=== PATIENT | female | born 1960 | race Caucasian/White ===

== ENCOUNTER 2021-03-14 09:40 | Emergency (ER) | payer MEDICAID ==
[~2021-03-14] VITALS: Ht 160 cm; Wt 88.5 kg
--- NOTE | 2021-03-14 10:05 | NUR ---
[facility] FOR DISLODGE G-J TUBE. PT C/O PAIN TO G-J SITE. PT AAOX3, PLACED ON VENT, RR EVEN & UNLABORED. ON TELE, ST. PT SEEN & EVAL'D BY DR. CARVER. WILL CONT TO MONITOR.
[2021-03-14 10:07] LABS: BASOPHILS # (AUTO) 0.1 K/uL (0.0-0.2); BASOPHILS % (AUTO) 0.5 % (0.0-2.0); EOSINOPHILS % (AUTO) 6.1 % (0.0-6.0); HEMATOCRIT 36 % (33-45); HEMOGLOBIN 11.7 g/dL (11.5-14.8); LYMPHOCYTES # (AUTO) 2.7 K/uL (0.8-4.8); MEAN CORPUSCULAR HGB CONC 33 g/dl (31.0-36.0); MEAN CORPUSCULAR VOLUME 90 fL (82-100); MONOCYTES # (AUTO) 1.1 K/uL (0.1-1.30); MONOCYTES % (AUTO) 7.1 % (2.0-12.0); NEUTROPHILS # (AUTO) 10.3 K/uL (1.8-8.9); NEUTROPHILS % (AUTO) 68.3 % (43.0-81.0); PLATELET COUNT (AUTO) 229 K/uL (150-450); RED BLOOD CELL COUNT(AUTO) 3.99 MIL/uL (4.0-5.2); WHITE BLOOD COUNT (AUTO) 15.1 K/uL (4.3-11.0)
--- NOTE | 2021-03-14 10:08 | NUR ---
GUEVARA CALLED SHAPING MACHINE OPERATOR PAGED. ROSALEE
[2021-03-14 10:15] LABS: CALCIUM, SERUM 9.2 mg/dL (8.5-10.1); CREATININE 0.3 mg/dL (0.6-1.3); POTASSIUM 3.5 mmol/L (3.5-5.1)
[2021-03-14] MEDS ORDERED: MAGN400O6 GT (10:45)
[2021-03-14] MEDS ORDERED: CHLO473M3 MM (10:45)
[2021-03-14] MEDS ORDERED: TRAM50TA2 GT (10:45)
[2021-03-14] MEDS ORDERED: INSU100V39 SQ (10:45)
[2021-03-14] MEDS ORDERED: MELA3TAB41 GT (10:45)
[2021-03-14] MEDS ORDERED: NUT.237L30 GT (10:45)
[2021-03-14] MEDS ORDERED: OMEP20CA15 GT (10:45)
[2021-03-14] MEDS ORDERED: ACET325T53 GT (10:45)
[2021-03-14] MEDS ORDERED: IPRA4AER IH ×2 (10:45)
[2021-03-14] MEDS ORDERED: POLY17PO4 GT (10:45)
[2021-03-14] MEDS ORDERED: ASCO500C17 GT (10:45)
[2021-03-14] MEDS ORDERED: ENOX40DI SQ (10:45)
[2021-03-14] MEDS ORDERED: ACET-2605 GT (10:45)
[2021-03-14] MEDS ORDERED: INSU100I26 SQ (10:45)
[2021-03-14] MEDS ORDERED: MULT-439 GT (10:45)
[2021-03-14] MEDS ORDERED: BUME2TAB7 GT (10:45)
[2021-03-14] MEDS ORDERED: NA P133E RC (10:45)
[2021-03-14] MEDS ORDERED: CRAN3875 GT (10:45)
[2021-03-14] MEDS ORDERED: AMIN887L GT (10:45)
[2021-03-14] MEDS ORDERED: METO25TA6 GT (10:45)
[2021-03-14] MEDS ORDERED: BISA10SU11 RC (10:45)
[2021-03-14] MEDS ORDERED: METF-440 GT (10:45)
--- NOTE | 2021-03-14 11:02 | NUR ---
spoke to Ludy BRENNAN from [facility] and patient is going to [facility].
--- NOTE | 2021-03-14 12:00 | NUR ---
PT ASLEEP, EASILY AWAKEN BY VERBAL STIMULI. DENIES CP, SOB, DIZZINESS, N/V AT THIS TIME. WILL CONT TO MONITOR.
--- NOTE | 2021-03-14 14:33 | NUR ---
PT AAOX3, RR EVEN & UNLABORED. DENIES CP, SOB, DIZZINESS, N/V AT THIS TIME. ON TELE, ST. WILL CONT TO MONITOR.
--- NOTE | 2021-03-14 15:49 | NUR ---
RT Received pt awake and responsive. Placed on vent settings provided by transport RT. Patient tolerating current settings. Patient currently on Portex 7 cuffed with back up trach + ambu bag at bedside. Patients trach cuff partially inflated per pt request. Educated patient on risk of having partially inflated cuff but patient continued to refuse. MD aware. Will continue to monitor
--- NOTE | 2021-03-14 16:58 | NUR ---
received a call from Ludy BRENNAN from [facility] and patient might go to [facility], will call back for MD to MD report.
--- NOTE | 2021-03-14 17:13 | NUR ---
PT AAOX3, RR EVEN & UNLABORED. DENIES CP, SOB, DIZZINESS, N/V AT THIS TIME. ON TELE, ST. WILL CONT TO MONITOR.
[2021-03-14] MEDS ORDERED: IV D5/0.45 NACL 1,000 ML IV ONE (18:00)
--- NOTE | 2021-03-14 18:32 | NUR ---
PT ACCEPTED TO [facility] UNDER DR. JACQUES ROOM #522-A CALL [phone] FOR REPORT. [facility] WITH AN ETA 2000 PER STAN [phone]
--- NOTE | 2021-03-14 19:21 | NUR ---
RECEIVED REPORT FOR [facility], PATIENT CONNECTED TO WASTEWATER PROJECT MANAGER, POX, TELE ST, VSS. WILL CONTINUE TO MONITOR.
[2021-03-14 19:27] VITALS: BP 115/74
--- NOTE | 2021-03-14 19:30 | NUR ---
REPORT GIVEN TO JE[facility] BARNES PRES.
--- NOTE | 2021-03-14 19:45 | NUR ---
REPORT GIVEN FOR [facility]SPORT [facility]. PATIENT IN STABLE CONDITION, NO ACUTE DISTRESS NOTED, TOLERATING VENT SETTINGS WELL.
== END 2021-03-14 20:06 | disposition short-term general hospital (02) ==
LOC: ER 09:53
DX: Z43.1 Encounter for attention to gastrostomy (principal); E87.4 Mixed disorder of acid-base balance; I51.81 Takotsubo syndrome; E11.65 Type 2 diabetes mellitus with hyperglycemia; Z79.4 Long term (current) use of insulin; J96.10 Chronic respiratory failure, unspecified whether with hypoxia or hypercapnia; R00.0 Tachycardia, unspecified; Z99.11 Dependence on respirator [ventilator] status; Z93.0 Tracheostomy status; Z20.822 Contact with and (suspected) exposure to COVID-19; M85.80 Other specified disorders of bone density and structure, unspecified site
CPT/HCPCS: 36415; 71045; 80048; 82962; 85025; 85610; 86850; 87081; 87426; 93005; 94799; 96365; 96366; 99285; C9803 ×2; J3490; U0003; 94002-TC

== ENCOUNTER 2021-09-06 13:34 | Emergency (ER) | payer MEDICAID ==
[~2021-09-06] VITALS: Ht 162.6 cm; Wt 79.8 kg
[~2021-09-06 13:34] MED LIST: ACET-2605 GT; ACET325T53 GT; AMIN887L GT; ASCO500C17 GT; BISA10SU11 RC; BUME2TAB7 GT; CHLO473M3 MM; CRAN3875 GT; ENOX40DI SQ; INSU100I26 SQ; INSU100V39 SQ; IPRA4AER IH; MAGN400O6 GT; MELA3TAB41 GT; METF-440 GT; METO25TA6 GT; MULT-439 GT; NA P133E RC; NUT.237L30 GT; OMEP20CA15 GT; POLY17PO4 GT; TRAM50TA2 GT
--- NOTE | 2021-09-06 13:47 | NUR ---
BIB PA C/O R HIP PAIN X 3 DAYS AND SACRAL PRESSURE ULCER. DENIES RECENT FALL OR TRAUMA. AAOX4, BREATHING EVEN AND UNLABORED, SKIN WARM AND DRY. ASSISTED TO ER BED 2. PT LAYING IN BED COMFORTABLY.
--- NOTE | 2021-09-06 14:45 | NUR ---
RIGHT HIP ARTHROGRAM ORDERED, CALLED ER TO CONFIRM FLUOROSCOPY PROCEDURE WITH DOCTOR. SPOKE WITH RN MIRELA @ [phone] WHO CONFIRMED WITH THE ORDERING MD GONZALEZ THAT ONLY A NORMAL PLAIN X-RAY IS DESIRED.
--- NOTE | 2021-09-06 15:17 | NUR ---
PT LAYING COMFORTABLY IN BED, NEEDS MET
[2021-09-06] MEDS ORDERED: BUSP5TAB3 GT (15:56)
[2021-09-06] MEDS ORDERED: HYDR-3973 GT (15:56)
[2021-09-06] MEDS ORDERED: TRIA15OI2 TP (15:56)
[2021-09-06] MEDS ORDERED: IVER3TAB2 PO (15:56)
[2021-09-06] MEDS ORDERED: ESCI10TA PO (15:56)
[2021-09-06 16:23] LABS: BASOPHILS % (AUTO) 0.3 % (0.0-2.0); EOSINOPHILS % (AUTO) 3.8 % (0.0-6.0); HEMATOCRIT 37 % (33-45); HEMOGLOBIN 12.2 g/dL (11.5-14.8); LYMPHOCYTES # (AUTO) 1.7 K/uL (0.8-4.8); LYMPHOCYTES % (AUTO) 13.4 % (20.0-44.0); MEAN CORPUSCULAR HGB CONC 33 g/dl (31.0-36.0); MEAN CORPUSCULAR VOLUME 91 fL (82-100); MONOCYTES # (AUTO) 0.8 K/uL (0.1-1.30); MONOCYTES % (AUTO) 6.2 % (2.0-12.0); NEUTROPHILS % (AUTO) 76.3 % (43.0-81.0); PLATELET COUNT (AUTO) 273 K/uL (150-450); RED BLOOD CELL COUNT(AUTO) 4.02 MIL/uL (4.0-5.2)
--- NOTE | 2021-09-06 16:35 | NUR ---
PT LAYING COMFORTABLY IN BED, AAOX4
[2021-09-06 16:46] LABS: CALCIUM, SERUM 8.9 mg/dL (8.5-10.1); CREATININE 0.5 mg/dL (0.6-1.3); POTASSIUM 3.8 mmol/L (3.5-5.1)
--- NOTE | 2021-09-06 17:12 | NUR ---
PT LAYING COMFORTABLY IN BED, NEEDS MET, AAOX4
--- NOTE | 2021-09-06 18:11 | NUR ---
MOVE SHEET SUBMITTED
--- NOTE | 2021-09-06 19:15 | NUR ---
REPORT GIVEN TO STEW FOR [facility]
[2021-09-06] MEDS ORDERED: KETOROLAC TROMETHAMINE INJ 30 MG/ML VIAL IV ONE (19:30)
[2021-09-06] MEDS ORDERED: VANCOMYCIN 1 GM in IV D5W 250 ML IV ONE (19:30)
--- NOTE | 2021-09-06 19:30 | NUR ---
received patient in bed. a/ox3. tolerating room air. having dry cough. c/o pain. MD aware.
[2021-09-06] MEDS ORDERED: VANCOMYCIN 1 GM VIAL ONE (20:01)
[2021-09-06] MEDS ORDERED: KETOROLAC TROMETHAMINE 15 MG/ML VIAL ONE (20:01)
--- NOTE | 2021-09-06 20:56 | NUR ---
HENRI DALEY ON PHONE CALLED WITH DR KINSEY
--- NOTE | 2021-09-07 01:50 | NUR ---
informed MD of increase in hr 130s. oral temp is 100.5, removed linen. received order for 1l ns
[2021-09-07] MEDS ORDERED: IV NS 0.9% 1,000 ML IV ONE (02:00)
--- NOTE | 2021-09-07 07:53 | NUR ---
ATTEMPTED TO CALL CLAIM REP FOR PT AND WAS NOTIFIED THAT NO TELECOMMUNICATIONS ANALYST ARE AVAILABLE UNTIL [phone]
--- NOTE | 2021-09-07 08:10 | NUR ---
PT RESTING COMFORTABLY IN BED, VSS
--- NOTE | 2021-09-07 08:35 | NUR ---
ROZ ORTEGA [phone]
--- NOTE | 2021-09-07 09:46 | NUR ---
SUSSY [phone] VARSHA BOND CALLED TO CHECK IF PATIENT IS STILL HERE
[2021-09-07 11:13] VITALS: BP 111/64
--- NOTE | 2021-09-07 13:13 | NUR ---
CALLED [facility] AND SET UP S TRANSPORT TO [facility]. ETA [phone]
[2021-09-07] MEDS ORDERED: CEPH500C2 PO (13:20)
--- NOTE | 2021-09-07 13:25 | NUR ---
CALLED [facility] TO GIVE REPORT AND THEY SAID THAT THEY WILL CALL BACK
--- NOTE | 2021-09-07 13:41 | NUR ---
IV removed. Catheter intact and site benign. Pressure and 4x4 applied to site. No bleeding noted.
--- NOTE | 2021-09-07 13:44 | NUR ---
REPORT GIVEN TO [facility]
== END 2021-09-07 13:54 ==
LOC: ER 13:51
DX: L89.154 Pressure ulcer of sacral region, stage 4 (principal); L03.317 Cellulitis of buttock; Z86.16 Personal history of COVID-19; Z93.0 Tracheostomy status; Z93.1 Gastrostomy status; I51.81 Takotsubo syndrome; I10 Essential (primary) hypertension; J96.10 Chronic respiratory failure, unspecified whether with hypoxia or hypercapnia; K21.9 Gastro-esophageal reflux disease without esophagitis; E11.9 Type 2 diabetes mellitus without complications
CPT/HCPCS: 36415; 72192; 73502; 80048; 82962; 85025; 85652; 86140; 87426; 96361; 96365; 96375; 99285; C9803; J1885; J3370; J7030

== ENCOUNTER 2021-10-07 17:13 | Emergency (ER) | payer MEDICAID ==
[~2021-10-07] VITALS: Ht 167.6 cm; Wt 72.6 kg
[~2021-10-07 17:13] MED LIST changes: -ASCO500C17 GT; +BUSP5TAB3 GT; +CEPH500C2 PO; +ESCI10TA PO; +HYDR-3973 GT; +IVER3TAB2 PO; -TRAM50TA2 GT; +TRIA15OI2 TP
--- NOTE | 2021-10-07 17:22 | NUR ---
To ER bed 10, [facility] unit42 From [facility] c/o "Pain on GT site", that started this morning, aaox3, breathing even and non labored, connected to monitor, awaiting md becerra
--- NOTE | 2021-10-07 17:45 | NUR ---
BACK FROM CT
[2021-10-07] MEDS ORDERED: HYDROCODONE/APAP 5/325MG TABLET ONE ×2 (18:55→22:11)
[2021-10-07] MEDS: HYDROCODONE/APAP 5/325MG TABLET PO ONE ×2 (19:00→22:14)
--- NOTE | 2021-10-07 19:01 | NUR ---
DR. TURK SPEAKING WITH DR. LEON.
--- NOTE | 2021-10-07 19:20 | NUR ---
DR. JUAREZ CALLED ASKED TO CALL US BACK.
--- NOTE | 2021-10-07 19:45 | NUR ---
JADEN SPEAKING WITH DR LEON
--- NOTE | 2021-10-07 20:36 | NUR ---
MOVE SHEET SUBMITTED
--- NOTE | 2021-10-07 22:02 | NUR ---
L WRIST #20G S/L; PATENT AND INTACT. COVID ANTIGEN SWAB COLLECTED AND SENT TO LAB
--- NOTE | 2021-10-07 23:10 | NUR ---
UPDATED QUAN DATABASE DEVELOPMENT PROJECT MANAGER FROM [facility]. AWAITING BED FROM [facility]
--- NOTE | 2021-10-07 23:37 | NUR ---
PT ACCEPTED AT [facility] UNDER DR. TUCKER / [address]-A / NUMBER FOR REPORT: ASK FOR NURSE MOISÉS. AUTHORIZATION#[id number]
--- NOTE | 2021-10-07 23:46 | NUR ---
CALLED [facility] FOR TRANSPORTATION TO [facility]. ETA 2 HOURS.
--- NOTE | 2021-10-07 23:53 | NUR ---
REPORT GIVEN TO MOISÉS
[2021-10-08 02:17] VITALS: BP 117/64
--- NOTE | 2021-10-08 02:18 | NUR ---
BEDSIDE REPORT GIVEN TO [facility] FOR TRANSFER TO [facility].
== END 2021-10-08 02:20 ==
LOC: ER 17:17
DX: K94.23 Gastrostomy malfunction (principal); R10.9 Unspecified abdominal pain; Z20.822 Contact with and (suspected) exposure to COVID-19; I10 Essential (primary) hypertension; K21.9 Gastro-esophageal reflux disease without esophagitis; E11.9 Type 2 diabetes mellitus without complications; Z79.899 Other long term (current) drug therapy; Z79.84 Long term (current) use of oral hypoglycemic drugs; Z79.4 Long term (current) use of insulin
CPT/HCPCS: C9803